=== PATIENT | male | born 1950 | race Caucasian/White ===

== ENCOUNTER → 2017-12-08 08:33 | Outpatient (CLI) | payer OTHER, SELFPAY ==
--- NOTE | 2017-12-08 | DI.US.S_ITS ---
PROCEDURE: US ARTERIAL DUPLEX LE BI INDICATIONS: PAD TECHNIQUE: Color and pulse Doppler interrogation was performed of both lower extremity arterial systems, with image documentation. COMPARISON: None. FINDINGS: Right lower extremity: Common femoral artery: 192 cm/sec, with biphasic flow. Deep femoral artery: 68 cm/sec, with biphasic flow. Proximal superficial femoral artery: 73 cm/sec, with triphasic flow. Mid superficial femoral artery: 79 cm/sec, with biphasic flow. Distal superficial femoral artery: 81 cm/sec, with biphasic flow. Popliteal artery: 238 cm/sec, with monophasic flow. Posterior tibial artery: Occluded Anterior tibial artery/dorsalis pedis: 51 cm/sec, with monophasic flow. Gleason-scale imaging description: Severe diffuse plaque Left lower extremity: Common femoral artery: 131 cm/sec, with triphasic flow. Deep femoral artery: 100 cm/sec, with biphasic flow. Proximal superficial femoral artery: 76 cm/sec, with monophasic flow. Mid superficial femoral artery: 20 cm/sec, with monophasic flow. Distal superficial femoral artery: 38 cm/sec, with monophasic flow. Popliteal artery: 36 cm/sec, with monophasic flow. Posterior tibial artery: 36 cm/sec, with monophasic flow. Anterior tibial artery/dorsalis pedis: 15 cm/sec, with monophasic flow. Gleason-scale imaging description: Severe diffuse plaque IMPRESSION: 1. Hemodynamically significant stenosis within the right popliteal and left superficial femoral arteries. 2. Severe diffuse underlying plaque. Dictated by: Annabella Aranda M.D. on 12/08/2017 at 10:46 Approved by: Annabella Aranda M.D. on 12/08/2017 at 10:49
== END ==
PROVIDERS: PCP Family Medicine; Visit Provider Internal Medicine Interventional Cardiology
DX: I70.203 Unspecified atherosclerosis of native arteries of extremities, bilateral legs (principal)
CPT/HCPCS: 93925

== ENCOUNTER → 2019-04-03 17:19 | Outpatient (CLI) | payer OTHER, SELFPAY ==
[2019-04-03 17:59] LABS: Hematocrit 41.2 % (41-53); Hemoglobin 13.7 g/dL (13.5-17.5); Mean Corpuscular HGB Conc 33.3 % (30-36); Mean Corpuscular Hemoglobin 29.2 PG (26-34); Mean Corpuscular Volume 87.7 fL (80-100); Platelet Count 241 X10^3/uL (150-400); Red Blood Cell Count 4.69 X10^6/uL (4.5-5.9); Red Cell Distribution Width 16.1 % (11.6-14.8); White Blood Cell Count 8.6 X10^3/uL (4.5-11.0)
[2019-04-03 18:13] LABS: Alanine Aminotransferase 47 IU/L (<50); Albumin 4.2 g/dL (3.5-5.0); Albumin Globulin Ratio 1.6 (1.0-2.8); Alkaline Phosphatase 108 U/L (38-126); Aspartate Aminotransferase 44 IU/L (17-59); BUN Creatinine Ratio 16.3 (6-22); Bilirubin Total 0.8 mg/dL (0.2-1.3); Blood Urea Nitrogen 13 mg/dL (9-20); Calcium 9.4 mg/dL (8.4-10.2); Carbon Dioxide 30 mmol/L (22-32); Chloride 95 mmol/L (98-107); Estimated Glomerular Filt Rate > 60.0 mL/min (>60); Globulin 2.7 g/dL (1.7-4.1); Glucose 78 mg/dL (80-110); HEMOLYSIS < 15 (0-50); Potassium 4.6 mmol/L (3.4-5.1); Sodium 135 mmol/L (137-145); Total Protein 6.9 g/dL (6.3-8.2)
[2019-04-03 18:16] LABS: Digoxin 0.7 ng/mL (0.8-2.0)
== END ==
PROVIDERS: PCP Family Medicine; Visit Provider Nurse Practitioner
DX: I50.9 Heart failure, unspecified (principal); I48.0 Paroxysmal atrial fibrillation
CPT/HCPCS: 36415; 80053; 80162; 85027

== ENCOUNTER → 2019-07-16 09:16 | Outpatient (CLI) | payer OTHER, SELFPAY ==
[2019-07-16 10:54] LABS: Blood Urea Nitrogen 16 mg/dL (9-20); Calcium 8.8 mg/dL (8.4-10.2); Carbon Dioxide 28 mmol/L (22-32); Chloride 95 mmol/L (98-107); Estimated Glomerular Filt Rate > 60.0 mL/min (>60); Glucose 301 mg/dL (80-110); HEMOLYSIS 20 (0-50); Potassium 4.3 mmol/L (3.4-5.1); Sodium 132 mmol/L (137-145)
[2019-07-16 11:08] LABS: Digoxin 0.7 ng/mL (0.8-2.0)
== END ==
PROVIDERS: PCP Family Medicine; Referring Provider Nurse Practitioner; Visit Provider Nurse Practitioner
DX: I48.0 Paroxysmal atrial fibrillation (principal)
CPT/HCPCS: 36415; 80048; 80162

== ENCOUNTER → 2021-08-28 08:02 | Outpatient (CLI) | payer OTHER, SELFPAY ==
--- NOTE | 2021-08-28 08:04 | DI.US.S_ITS ---
PROCEDURE: US CAROTID DOPPLER BI INDICATIONS: PERSISTENT ATRIAL FIBRILLATION/PVD TECHNIQUE: Color and pulse Doppler interrogation was performed of both carotid systems, with image documentation and velocity measurements. COMPARISON: None. FINDINGS: Stenosis calculations are based on SRU (S[employer] in [employer]) criteria. Right side: Brachial blood pressure: 132/69 mm Hg. Common carotid artery peak systolic velocity: 46 cm/sec. Internal carotid artery peak systolic velocity: 164 cm/sec. Internal carotid artery end diastolic velocity: 34 cm/sec. External carotid artery peak systolic velocity: 126 cm/sec. ICA/CCA peak systolic ratio: 3.6. Gleason scale imaging description: There is diffuse predominant calcified atherosclerosis noted throughout the vasculature. This is worse at the proximal internal carotid artery with turbulent flow distally. There is a large shadowing plaque within the proximal right internal carotid artery limiting evaluation of amount of stenosis. Percent internal carotid artery stenosis: 50-69 percent. Vertebral artery: Flow direction is antegrade. Left side: Brachial blood pressure: 133/71 mm Hg. Common carotid artery peak systolic velocity: 85 cm/sec. Internal carotid artery peak systolic velocity: 67 cm/sec. Internal carotid artery end diastolic velocity: 30 cm/sec. External carotid artery peak systolic velocity: 145 cm/sec. ICA/CCA peak systolic ratio: 0.8. Gleason scale imaging description: Diffuse predominately calcified atherosclerosis most prominent within the proximal internal carotid artery and proximal external carotid artery. This measures less than 50 percent stenosis. Percent internal carotid artery stenosis: Less than 50%. Vertebral artery: Flow direction is antegrade. IMPRESSION: 50-69 percent stenosis of the right internal carotid artery. Less than 50% stenosis of the left internal carotid artery. Dictated by: Don Buchanan D.O. on 08/28/2021 at 8:05 Approved by: Don Buchanan D.O. on 08/28/2021 at 8:13
== END ==
PROVIDERS: PCP Family Medicine; Referring Provider Internal Medicine Cardiovascular Disease; Visit Provider Internal Medicine Cardiovascular Disease
DX: I48.19 Other persistent atrial fibrillation (principal); I73.9 Peripheral vascular disease, unspecified; I65.23 Occlusion and stenosis of bilateral carotid arteries
CPT/HCPCS: 93880

== ENCOUNTER → 2024-11-25 16:43 | Outpatient (ROUT) | payer OTHER, SELFPAY ==
[2024-11-25 17:05] LABS: INR 1.2 (0.9-1.3); Prothrombin Time 13.7 SECONDS (9.4-12.5)
== END ==
PROVIDERS: PCP Family Medicine; Visit Provider Nurse Practitioner Family
DX: K74.00 Hepatic fibrosis, unspecified (principal); R93.2 Abnormal findings on diagnostic imaging of liver and biliary tract
CPT/HCPCS: 85610